=== PATIENT | female | born 1955 | race African-American/Black ===

== ENCOUNTER → 2017-06-09 | Outpatient (CLI) | payer OTHER ==
[~2017-06-09] MED LIST: BACTROBAN OINT22 GM TP; CATAFLAM50 MG; FLEXERIL 10 MG PO; FORTAMET1000 MG; GILTUSS TR TAB1 EACH PO; GLUCOPHAGE XR500 MG; GLUCOPHAGE XR500 MG PO; HYZAAR 100-251 EACH PO; HYZAAR 100-251 UDTAB; HYZAAR 100-251 UDTAB PO; MAXITROL EYE DRO5 ML OP; NEURONTIN600 MG PO; NORFLEX100 MG PO; RELAFEN500 MG PO; TENTRAL; TOBREX5 ML OP; TORADOL10 MG PO; TRENTAL 400 MG PO; VOLTAREM 50 MG PO; VOLTAREM PO; VOLTAREN50 MG; ZITHROMAX200 MG PO; ZOCOR40 MG; ZYRTEC10 MG PO
== END | disposition home or self-care (01) ==
LOC: LAB 08:40
DX: M54.2 Cervicalgia (principal)

== ENCOUNTER → 2017-07-08 09:22 | Outpatient (CLI) | payer OTHER ==
[~2017-07-08] VITALS: Ht 152.4 cm; Wt 108.9 kg
== END | disposition home or self-care (01) ==
LOC: PPHC 09:22
DX: Z76.0 Encounter for issue of repeat prescription (principal)

== ENCOUNTER 2017-07-25 10:13 | Outpatient (CLI) | payer OTHER | END 2017-07-25 10:21 | disposition home or self-care (01) | LOC: RAD 10:13 | DX: M54.2 Cervicalgia (principal) ==

== ENCOUNTER → 2017-07-25 | Outpatient (CLI) | payer OTHER ==
[~2017-07-25] VITALS: Ht 152.4 cm; Wt 108.9 kg
== END | disposition home or self-care (01) ==
LOC: PPHC 07:43
DX: M54.2 Cervicalgia (principal); M54.6 Pain in thoracic spine

== ENCOUNTER → 2017-07-27 | Outpatient (CLI) | payer OTHER ==
[~2017-07-27] VITALS: Ht 152.4 cm; Wt 110.7 kg
== END | disposition home or self-care (01) ==
LOC: PPHC 14:12
DX: M54.2 Cervicalgia (principal)

== ENCOUNTER → 2017-10-12 | Outpatient (CLI) | payer OTHER | END | disposition home or self-care (01) | LOC: PPHC 08:57 | DX: Z01.89 Encounter for other specified special examinations (principal); Z00.8 Encounter for other general examination ==

== ENCOUNTER 2017-10-20 06:34 | Outpatient (CLI) | payer OTHER | END 2017-10-20 06:45 | disposition home or self-care (01) | LOC: LAB 06:34 | DX: M25.50 Pain in unspecified joint (principal); I10 Essential (primary) hypertension; M54.5 Low back pain; Z01.810 Encounter for preprocedural cardiovascular examination; E11.51 Type 2 diabetes mellitus with diabetic peripheral angiopathy without gangrene; E11.9 Type 2 diabetes mellitus without complications; E66.8 Other obesity; M89.9 Disorder of bone, unspecified; G62.9 Polyneuropathy, unspecified ==

== ENCOUNTER 2017-10-20 07:08 | Outpatient (CLI) | payer OTHER | END 2017-10-20 07:12 | disposition home or self-care (01) | LOC: MAMO-SONO 07:08 | DX: Z12.31 Encounter for screening mammogram for malignant neoplasm of breast (principal); I10 Essential (primary) hypertension; M54.5 Low back pain; Z01.810 Encounter for preprocedural cardiovascular examination; E11.51 Type 2 diabetes mellitus with diabetic peripheral angiopathy without gangrene; E11.9 Type 2 diabetes mellitus without complications; E66.8 Other obesity; M89.9 Disorder of bone, unspecified; G62.9 Polyneuropathy, unspecified ==

== ENCOUNTER 2018-02-02 12:56 | Outpatient (CLI) | payer OTHER | END 2018-02-02 13:00 | disposition home or self-care (01) | LOC: RAD 12:56 | DX: M79.604 Pain in right leg (principal) ==

== ENCOUNTER 2018-02-13 08:15 | Outpatient (CLI) | payer OTHER | END 2018-02-13 10:00 | disposition home or self-care (01) | LOC: NUCLEAR 08:15 | DX: M79.604 Pain in right leg (principal); I87.2 Venous insufficiency (chronic) (peripheral) ==

== ENCOUNTER 2018-02-13 09:56 | Outpatient (CLI) | payer OTHER | END 2018-02-13 09:58 | disposition home or self-care (01) | LOC: LAB 09:56 | DX: E11.9 Type 2 diabetes mellitus without complications (principal); E78.4 Other hyperlipidemia; I10 Essential (primary) hypertension ==

== ENCOUNTER → 2018-05-11 06:25 | Outpatient (CLI) | payer OTHER | END | disposition home or self-care (01) | LOC: LAB 06:25 | DX: I10 Essential (primary) hypertension (principal); M54.5 Low back pain; Z01.810 Encounter for preprocedural cardiovascular examination; E11.51 Type 2 diabetes mellitus with diabetic peripheral angiopathy without gangrene; E66.8 Other obesity; G62.89 Other specified polyneuropathies; M79.672 Pain in left foot; M72.0 Palmar fascial fibromatosis [Dupuytren]; M89.8X8 Other specified disorders of bone, other site ==

== ENCOUNTER 2018-05-11 07:06 | Outpatient (CLI) | payer OTHER | END 2018-05-11 07:28 | disposition home or self-care (01) | LOC: RAD 07:06 → MAMO-SONO 08:15 | DX: M25.561 Pain in right knee (principal); I10 Essential (primary) hypertension; M54.5 Low back pain; Z01.810 Encounter for preprocedural cardiovascular examination; E11.51 Type 2 diabetes mellitus with diabetic peripheral angiopathy without gangrene; E66.8 Other obesity; M89.9 Disorder of bone, unspecified; G62.89 Other specified polyneuropathies; M79.672 Pain in left foot; M72.0 Palmar fascial fibromatosis [Dupuytren]; E07.89 Other specified disorders of thyroid ==

== ENCOUNTER 2019-02-07 09:24 | Outpatient (CLI) | payer OTHER | END 2019-02-07 09:30 | disposition home or self-care (01) | LOC: LAB 09:24 | DX: E11.65 Type 2 diabetes mellitus with hyperglycemia (principal); Z00.00 Encounter for general adult medical examination without abnormal findings; Z13.6 Encounter for screening for cardiovascular disorders; I10 Essential (primary) hypertension; E78.2 Mixed hyperlipidemia; M79.674 Pain in right toe(s) ==

== ENCOUNTER 2019-02-08 11:46 | Outpatient (CLI) | payer OTHER | END 2019-02-08 11:47 | disposition home or self-care (01) | LOC: LAB 11:46 | DX: E11.65 Type 2 diabetes mellitus with hyperglycemia (principal); Z00.00 Encounter for general adult medical examination without abnormal findings; Z13.6 Encounter for screening for cardiovascular disorders; I10 Essential (primary) hypertension; E78.2 Mixed hyperlipidemia ==

== ENCOUNTER 2019-02-27 07:30 | Outpatient (CLI) | payer OTHER | END 2019-02-27 08:32 | disposition home or self-care (01) | LOC: NUCLEAR 07:30 | DX: M79.674 Pain in right toe(s) (principal); R60.0 Localized edema; E11.65 Type 2 diabetes mellitus with hyperglycemia; I10 Essential (primary) hypertension ==

== ENCOUNTER 2019-03-02 08:37 | Outpatient (CLI) | payer OTHER | END 2019-03-02 08:50 | disposition home or self-care (01) | LOC: NUCLEAR 08:37 | DX: M79.674 Pain in right toe(s) (principal); I73.9 Peripheral vascular disease, unspecified; R06.09 Other forms of dyspnea; I10 Essential (primary) hypertension; E11.65 Type 2 diabetes mellitus with hyperglycemia ==